=== PATIENT | female | born 1950 | race Hispanic/Latino ===

== ENCOUNTER 2016-12-19 14:23 | Emergency (ER) | payer MEDICARE, OTHER ==
[~2016-12-19] VITALS: Ht 162.6 cm; Wt 84.4 kg
[~2016-12-19 14:23] MED LIST: ACETAZOLAMID250 MG PO; AFEDITAB60 MG OR; ATENOLOL25 MG PO; ATENOLOL50 MG PO; AZITHROMYCIN250 MG PO; BENAZEPRIL5 MG PO; CIPRO XR500 MG PO; COUMADIN2.5 MG PO; COUMADIN3 MG PO; COUMADIN5 MG PO; DIGOXIN0.25 MG PO; ENALAPRIL10 MG PO; ENALAPRIL20 MG OR; LASIX 40 MG TAB40 MG PO; LASIX40 MG OR; LEVOTHYROXIN100 MCG PO; LEVOTHYROXIN25 MCG PO; LOPRESSOR50 M1 PO; LOPRESSOR50 MG PO; MEDDOSEPAK PO; MEDROL4 M1 PO; METFORMIN500 M1 OR; METFORMIN500 MG PO; METOPROL TAR50 MG OR; METOPROL TAR50 MG PO; METOPROLOL50 MG OR; NADOLOL20 MG PO; NIFEDICAL XL60 MG PO; NIFEDIPINE60 MG PO; OMEPRAZOLE20 MG PO; ONDANSETRON4 MG OR; SIMVASTATIN10 MG PO; SPIRONOLACTONE25 MG PO; SYMBICORT1 AE1 IN; ULTRAM50 MG OR; VENTOLIN HFA IN; XARELTO20 MG OR; XARELTO20 MG PO; ZOFRAN4 MG OR
[2016-12-19] MEDS ORDERED: MUPIROCIN2 % EX (15:25)
[2016-12-19] MEDS ORDERED: DOXYCYC MONO100 M1 PO (15:25)
[2016-12-19 15:36] VITALS: BP 123/75
== END 2016-12-19 15:42 | disposition home or self-care (01) ==
LOC: ED 14:23
DX: E11.622 Type 2 diabetes mellitus with other skin ulcer (principal); L97.919 Non-pressure chronic ulcer of unspecified part of right lower leg with unspecified severity; I10 Essential (primary) hypertension; J45.909 Unspecified asthma, uncomplicated; I48.91 Unspecified atrial fibrillation; K72.90 Hepatic failure, unspecified without coma; R18.8 Other ascites; Z86.73 Personal history of transient ischemic attack (TIA), and cerebral infarction without residual deficits

== ENCOUNTER 2016-12-31 10:14 | Emergency (ER) | payer MEDICARE, OTHER ==
[~2016-12-31] VITALS: Ht 165.1 cm; Wt 81.8 kg
[~2016-12-31 10:14] MED LIST changes: +DOXYCYC MONO100 M1 PO; +MUPIROCIN2 % EX
[2016-12-31 11:06] LABS: HEMATOCRIT 31.7 % (37.0-47.0); HEMOGLOBIN 9.8 g/dl (12.0-16.0); IMMATURE GRANULOCYTES 0.7 % (0.0-1.0); MEAN CELL VOLUME 99.7 fL CALC (80.0-100.0); MEAN CORPUSCULAR HGB 30.8 pG CALC (26.0-32.0); MEAN CORPUSCULAR HGB CONC 30.9 g/L CALC (32.0-36.0); NEUT# 1.86 thou/uL (2.00-7.15); RED BLOOD COUNT 3.18 mill/uL (4.20-5.60)
[2016-12-31 11:20] LABS: INTERNATIONAL NORMALIZED RATIO 1.5 RATIO (0.7-1.3); PROTHROMBIN TIME 16.2 SECONDS (9.0-12.5)
[2016-12-31 11:21] LABS: ALBUMIN 3.9 g/dL (3.2-5.0); BILIRUBIN, TOTAL 1.8 mg/dL (0.0-1.4); CALCIUM 10.6 mg/dL (8.4-10.2); CREATININE 1.7 mg/dL (0.5-1.0); TOTAL PROTEIN 8.4 g/dL (6.3-8.2)
[2016-12-31 11:32] LABS: POTASSIUM 5.5 mmol/l (3.5-5.1)
[2016-12-31 14:40] VITALS: BP 103/65
== END 2016-12-31 14:45 | disposition home or self-care (01) ==
LOC: ED 10:14
PROVIDERS: Emergency Medicine
PROC: 0W9G3ZZ Drainage of Peritoneal Cavity, Percutaneous Approach (ICD-10-PCS; principal; 2016-12-31)
DX: R18.8 Other ascites (principal); K72.90 Hepatic failure, unspecified without coma; E11.9 Type 2 diabetes mellitus without complications; I10 Essential (primary) hypertension; J45.909 Unspecified asthma, uncomplicated; I48.91 Unspecified atrial fibrillation; Z86.73 Personal history of transient ischemic attack (TIA), and cerebral infarction without residual deficits

== ENCOUNTER 2017-04-09 11:32 | Inpatient (IN) | payer MEDICARE, OTHER ==
[~2017-04-09] VITALS: Ht 165.1 cm; Wt 85.3 kg
--- NOTE | 2017-04-09 11:41 | NUR ---
PT AMBULATORY TO ROOM 9.
--- NOTE | 2017-04-09 11:46 | NUR ---
PT AMBULATED TO THE BATHROOM WITH A STEADY GAIT TO OBTAIN URINE SAMPLE.
[2017-04-09 12:17] LABS: URINE BILIRUBIN - DIPSTICK NEGATIVE (NEGATIVE); URINE BLOOD DIPSTICK NEGATIVE (NEGATIVE); URINE COLOR YELLOW; URINE GLUCOSE - DIPSTICK NEGATIVE (NEGATIVE); URINE KETONE NEGATIVE (NEGATIVE); URINE LEUK ESTERASE TRACE (NEGATIVE); URINE NITRITE - DIPSTICK NEGATIVE (Negative); URINE PH 5.5 (4.5-8.0); URINE SPECIFIC GRAVITY >=1.030
[2017-04-09 12:20] LABS: HEMATOCRIT 31.3 % (37.0-47.0); HEMOGLOBIN 9.7 g/dl (12.0-16.0); IMMATURE GRANULOCYTES 0.4 % (0.0-1.0); MEAN CELL VOLUME 102.6 fL CALC (80.0-100.0); MEAN CORPUSCULAR HGB 31.8 pG CALC (26.0-32.0); NEUT# 1.49 thou/uL (2.00-7.15); RED BLOOD COUNT 3.05 mill/uL (4.20-5.60); RED CELL DISTRI WIDTH 13.8 % (11.5-15.5)
[2017-04-09 12:21] LABS: URINE CLARITY CLEAR; URINE PROTEIN - DIPSTICK Trace mg/dL (NEG-TRACE)
[2017-04-09 12:30] LABS: INTERNATIONAL NORMALIZED RATIO 1.1 RATIO (0.7-1.3)
[2017-04-09 12:36] LABS: ALBUMIN 3.9 g/dL (3.2-5.0); BILIRUBIN, TOTAL 1.7 mg/dL (0.0-1.4); CALCIUM 10.9 mg/dL (8.4-10.2); CREATININE 1.8 mg/dL (0.5-1.0); POTASSIUM 4.5 mmol/l (3.5-5.1); TOTAL PROTEIN 7.8 g/dL (6.3-8.2)
--- NOTE | 2017-04-09 13:00 | NUR ---
PT RESTING COMFORTBALY IN STRETCHER WITH HOB ELEVATED, SAO2 97% ON 2L NC. PT AWARE OF PENDING PARACENTESIS. CALL RAN MITCHELL.
--- NOTE | 2017-04-09 14:02 | NUR ---
PT RETURNED FROM ULTRASOUND, PT DENIES ANY ABD PAIN AT THIS TIME. ABD SOFT, NON, TENDER UPON PALPATION. INCISION SITE FREE FROM REDNESS OR EDEMA. PT DENIES ANY SOB. SAO2 97% ON 1 L NC. PT AWARE OF PLAN OF CARE AND WAIT TIME. CALL TONG WITHIN REACH, WILL CONTINUE TO MONITOR.
--- NOTE | 2017-04-09 14:30 | NUR ---
PT REPORTS PAIN TO THE RIGHT ABD. RIGHT SIDE ABD NEAR PUNCTURE SITE HAS A LARGE HEMATOMA. MD NOTIFIED AND AT BEDSIDE. PRESSURE DRESSING PLACED AND WILL CONTINUE TO MONITOR.
--- NOTE | 2017-04-09 15:10 | NUR ---
PT HYPOTENSIVE, VERBAL ORDER FROM MD TO GIVE 500 MLS NORMAL SALINE BOLUS.
--- NOTE | 2017-04-09 15:41 | NUR ---
AMELIAAR PRINTED TO THE FLOOR
--- NOTE | 2017-04-09 15:50 | NUR ---
DAUGHTER AT BEDSIDE AND MADE AWARE OF PLAN OF CARE AND PLAN FOR ADMISSION. PT DENIES ANY PAIN OR SOB AT THIS TIME.
--- NOTE | 2017-04-09 16:17 | NUR ---
ALBUMIN INFUSING WITH NO DIFFICULTY THROUGH IV SITE. IV SITE FREE FROM REDNESS/EDEMA. DAUGHTER AND PT AWARE OF PLAN OF CARE AND WAIT TIME. WILL CONTINUE TO MONITOR.
--- NOTE | 2017-04-09 16:25 | NUR ---
MARIO CRUZ WILL CALL BACK FOR REPORT.
--- NOTE | 2017-04-09 16:30 | NUR ---
PT AND FAMILY AWARE OF PLAN FOR ADMISSION TO ICU OVERFLOW PT. PT RESTING COMFORTABLY IN STRECHER, WILL CONTINUE TO MONITOR.
--- NOTE | 2017-04-09 16:55 | NUR ---
REPORT CALLED TO OSCAR BISHOP LPN IN ICU.
[2017-04-09] MEDS ORDERED: PROPRANOLOL120 MG PO (17:00)
--- NOTE | 2017-04-09 17:15 | NUR ---
PT ARRIVED TO THE UNIT VIA STRETCHER, PT MOVED SELF OVER TO BED WITH MINIMAL ASSISTANCE, PT A & O X3, PERRL, AFEBRILE, HR 106, RESP. 20, BP 96/50, O2 96% ON RA, LUNG SOUNDS CLEAR IN ALL CEBALLOS, 20G RAC SALINE LOCKED, NO REDNESS OR DRAINAGE AT SITE, 1+ BILAT ANKLE EDEMA, PT HAS BRONZING TO LE, STRONG RADIAL PULSES, WEAK PEDAL PULSES, CALL TONG AND MONITORING EQUIPMENT EXPLAINED TO THE PT PRIOR TO APPLYING, PT VERBALIZED UNDERSTANDING OF EQUIPMENT, PT HAS VERBALIZED RLQ PAIN, GRAPEFRUIT SIZED HEMATOMA, ABD BINDER APPLIED, ADMISSION ASSESSMENT COMPLETE, SEE INTERVENTIONS, SAFETY MEASURES INTRODUCED, CALL TONG WITHIN REACH
--- NOTE | 2017-04-09 17:15 | NUR ---
Admission Note Report Given to: OSCAR BISHOP LPN Transported by: Wheelchair X Stretcher Transported with: X Nurse Transporter X Patent IV O2 X Senior Hris Analyst PT TO ICU 4 IN STABLE CONDITION.
--- NOTE | 2017-04-09 18:50 | NUR ---
RECEIVED REPORT FROM OSCAR BISHOP, ASSUMED PT CARE. FOUND PT RESTING IN BED, AWAKE WATCHING TV, ALERT AND ORIENTED X3, DENIES N/V, DIZZINESS OR LIGHTHEADEDNESS, RESP ARE EVEN AND UNLABORED ON ROOM AIR, AFIB ON THE MONITOR, HR 100-125 AT THIS TIME, NO DISTRESS NOTED, POST-PARACENTESIS, C/O OF WEAKNESS, DRESSING TO RLQ APPEARS CDI SECURED WITH ABDOMINAL BINDER, HEMATOMA TO RLQ, SIZE OF GRAPEFRUIT, NO REDNESS OR BRUSING NOTED AT SITE, PT STATES "ONLY WHEN I MOVE OR IF I AM LYING ON LEFT SIDE, IT HURTS; OTHERWISE IS ONLY A LITTLE TENDER." ABD IS SOFT, PT APPEARS PALE, SKIN IS WARM AND DRY MUCOUS MEMBRANES, ORAL HYDRATION PROVIDED, LUNGS ARE CLEAR ALLTHROUGHOUT, EXPLAINED SAFETY MEASURES AND PLAN OF CARE PT VOICES UNDERSTADING, THIS MOLDER 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
[2017-04-09 19:15] VITALS: BP 96/50
[2017-04-09 20:00] VITALS: BP 76/76
[2017-04-09 20:15] VITALS: BP 78/45
[2017-04-09 20:30] VITALS: BP 75/34
[2017-04-09 20:35] VITALS: BP 78/50
--- NOTE | 2017-04-09 20:45 | NUR ---
NOTIFIED DR. YU OF PT HYPOTENSION, MONITOR SHOWS 75/34, MANUAL BP 78/50, AFIB ON MONITOR HR 115-145, ORDERS TO ADMINISTER NS 250ML BOLUS IV, THEN NS CONTINUOUS AT 100ML/HR. ORDER FAXED TO PHARMACY. PT ASYMTOMATIC, VOICES NO COMPLAINTS AT THIS TIME, RESP ARE EVEN AND UNLABORED ON ROOM AIR, SKIN APPEARS PALE AND MUCOUS MEMBRANES ARE DRY, PO HYDRATION PROVIDED. WILL CONTINUE TO MONITOR CLOSELY.
--- NOTE | 2017-04-09 22:05 | NUR ---
NOTIFIED DR. YU OF PT BP 77/54 AFTER NS 250ML BOLUS COMPLETED AND AFIB ON MONITOR WITH HR 110-140, ASYMPTOMATIC, SPO2 96% ON ROOM AIR, RESP ARE EVEN AND UNLABORED, ORDERS TO INCREASE NS FROM 100ML/HR TO 150ML/HR CONTINOUOS. WILL CONTINUE TO MONITOR CLOSELY. CALL TONG AT REACH, PT HAS X2 VISITORS AT BEDSIDE.
[2017-04-09 23:50] VITALS: BP 76/40
--- NOTE | 2017-04-09 23:51 | NUR ---
NOTIFIED DR. YU OF PT ASYMPTOMATIC HYPOTENSION BP 76/40, AFIB HR 100-145, TYMPANIC TEMP 100.1; WAITING FOR ORDERS TO BE PROFILE BY PHARMCY.
[2017-04-10] VITALS (33 sets, daily range): BP systolic 67–99; BP diastolic 28–72
--- NOTE | 2017-04-10 02:15 | NUR ---
UPDATED DR. YU OF PT BP 87/45, ASYMPTOMATIC AT THIS TIME, AND OF AFIB WITH HR 110-145, AFTER 1500ML IVF INFUSED SO FAR AND URINE OUPUT 200ML. NO NEW ORDERS RECEIVED AT THIS TIME.
--- NOTE | 2017-04-10 04:02 | NUR ---
NOTIFIED DR. YU OF PT HALLUCINATING AT THIS TIME, STATES "THERE IS A SPIDER AND BIRD HANGING FROM THE CEILING AND ARE GOING TO FALL ON ME." TURNED LIGHTS ON AND REASSURED PT THAT THERE WAS NOT ANYTHING HANGING FROM THE CEILING, PT ALERT AND ORIENTED X4, BUT CONTINUES SAYING THAT THERE IS A BIRD/SPIDER HANGING FROM THE CEILING. FOUND PT WET FROM URINE, PROVIDED CLEAN LINENS AND GOWN, TEMP IS 99.8 AT THIS TIME, MONITOR SHOWS AFIB, HR 110-145, BP 92/44. ABDOMINAL BINDER REMOVED TO REASSESS HEMATOMA TO RLQ, NO CHANGES NOTED FROM BEGINNING OF SHIFT ASSESSMENT NO REDNESS/BRUISING AT SITE, MODERATE RIGIDITY NOTED AT PALPATION, DRESSING TO RLQ APPEARS CDI, PT STATES "IT HURTS WHEN I MOVE OR IF I TRY TO LAY ON THE RIGHT SIDE."
[2017-04-10 04:09] LABS: MEAN CELL VOLUME 103.4 fL CALC (80.0-100.0); MEAN CORPUSCULAR HGB 31.8 pG CALC (26.0-32.0); MEAN CORPUSCULAR HGB CONC 30.8 g/L CALC (32.0-36.0); RED BLOOD COUNT 1.79 mill/uL (4.20-5.60); RED CELL DISTRI WIDTH 14.1 % (11.5-15.5)
[2017-04-10 04:17] LABS: HEMATOCRIT 18.5 % (37.0-47.0); HEMOGLOBIN 5.7 g/dl (12.0-16.0)
--- NOTE | 2017-04-10 04:25 | NUR ---
0419-NOTIFIED DR. YU OF HBG 5.7 AND HCT 18.5, ORDERS TO TYPE AND SCREEN, 2 UNITS OF RBC'S STAT, STOOL OCCULT, CT ABD/PELVIS W/O CONTRAST TO CHECK HEMATOMA. 0425- LAB TECHN IN PT ROOM FOR TYPE & SCREEN AT THIS TIME.
[2017-04-10 04:27] LABS: INTERNATIONAL NORMALIZED RATIO 1.2 RATIO (0.7-1.3)
--- NOTE | 2017-04-10 04:30 | NUR ---
PT IS ALERT AND ORIENTED X4, SIGNED CONSENT FOR ADMINISTRATION OF BLOOD AND BLOOD PRODUCTS, EXPLAINED PROCEDURE, BENEFITS AND RISK, PT VOICES UNDERSTANDING, WILL REINFORCE EDUCATION AT TIME OF INFUSION, WILL CONTINUE TO MONITOR CLOSELY, CALL TONG AT REACH, PT CONTINUES HYPOTENSIVE, DR YU AWARE
[2017-04-10 04:38] LABS: ALBUMIN 2.4 g/dL (3.2-5.0); ALKALINE PHOSPHATASE 80 u/l (38-126); ANION GAP 10 (6-22 (CALC)); BILIRUBIN, TOTAL 1.4 mg/dL (0.0-1.4); BUN 25 mg/dL (8-23); BUN/CREATININE RATIO 15 (12-20 (CALC)); CALCIUM 9.2 mg/dL (8.4-10.2); CARBON DIOXIDE 23 mmol/l (22-30); CHLORIDE 111 mmol/l (95-108); CREATININE 1.6 mg/dL (0.5-1.0); GFR 32 ML/MIN (>=60 (CALC)); GFR FOR AFR.AMER. 39 ML/MIN (>=60 (CALC)); GLUCOSE 120 mg/dL (82-115); POTASSIUM 4.7 mmol/l (3.5-5.1); SGOT/AST 13 u/l (9-36); SGPT/ALT 18 u/l (11-66); SODIUM 140 mmol/l (137-146); TOTAL PROTEIN 5.2 g/dL (6.3-8.2)
--- NOTE | 2017-04-10 06:50 | NUR ---
PT RETURNED FROM CT, PT TX FROM STRETCHER TO BED WITH MAX ASSISTANCE, PT TOLERATED WELL
--- NOTE | 2017-04-10 07:05 | NUR ---
PT LAYING IN BED WITH EYES OPENED, DENIES ANY PAIN AT THIS TIME, A & O X3, PERRL, AFEBRILE TEMP. 97.5, HR 114, RESP. 20, BP 85/53, O2 92% ON RA, LUNG SOUNDS CLEAR IN ALL CEBALLOS, STRONG RADIAL PULSES, WEAK PEDAL PULSES, ABD BINDER REMAINS IN PLACE, 20G RAC IV WITH NS INFUSING AT PRESCRIBED RATE, AM ASSESSMENT COMPLETE, SEE INTERVENTIONS, SAFETY MEASURES REINFORCED, CALL TONG WITHIN REACH
--- NOTE | 2017-04-10 07:10 | NUR ---
DR YU AT BEDSIDE DISCUSSING PLAN OF CARE, NURSE NOA AT BEDSIDE TO INTERPRET FOR
--- NOTE | 2017-04-10 07:35 | NUR ---
SETUP ASSISTANCE PROVIDED WITH ERIC ENRIQUEZ
--- NOTE | 2017-04-10 08:15 | NUR ---
PT LAYING IN BED WATCHING TV, PT DENIES ANY PAIN AT THIS TIME, WILL CONTINUE TO MONITOR, PT REMINDED TO CALL FOR ASSISTANCE, CALL TONG WITHIN REACH
--- NOTE | 2017-04-10 08:19 | NUR ---
Vancomycin consult Age: 66 years Weight: 71.015 kg Height: 165.1 cm Gender: Female SCR: 1.6 mg/dl Dosing weight: 71.015 kg IBW: 57.00 kg CRCL (ml/min): 30.3 George (hr-1): 0.030 Half-life (hrs): 23.10 Vd (liters): 49.71 (factor: 0.7 L/kg) Vancomycin 1000 mg q24 hrs to produce a predicted peak of 38 mcg/ml and a predicted trough of 19 mcg/ml based on (Population-based pharmacokinetic analysis).
--- NOTE | 2017-04-10 09:45 | NUR ---
PT SITTING UP IN BED TALKING ON HER CELL PHONE, CALL RAN WITHIN REACH
--- NOTE | 2017-04-10 10:45 | NUR ---
PT LAYING IN BED WATCHING TV, VERBALIZES NO COMPLAINTS, BLOOD PRODUCTS INFUSING WITHOUT INCIDENT, PT REMINDED TO CALL FOR ASSISTANCE, CALL TONG WITHIN REACH
--- NOTE | 2017-04-10 11:30 | NUR ---
SETUP ASSISTANCE PROVIDED WITH AM MEAL, PT VERBALIZES NO COMPLAINTS, CALL TONG WITHIN REACH
--- NOTE | 2017-04-10 12:10 | NUR ---
PT SITTING UP IN BED WATCHING TV, TOLERATED LUNCH WELL, REMINDED TO CALL FOR ASSISTANCE, CALL TONG WITHIN REACH
--- NOTE | 2017-04-10 13:40 | NUR ---
PT RESTING WITH EYES CLOSED AROUSES EASILY TO VERBAL STIMULI, ABD BINDER REMAINS IN PLACE, PT DENIES PAIN, CALL TONG WITHIN REACH
--- NOTE | 2017-04-10 15:41 | NUR ---
PT ASSISTED WITH REPOSITIONING FOR COMFORT, PT DENIES PAIN, CALL TONG WITHIN REACH
--- NOTE | 2017-04-10 16:27 | NUR ---
PT ASSISTED TO THE BSC AND BACK TO BED, PT AMBULATED WITH A STRONG STEADY GAIT, PT ASSISTED WITH GETTING WASHED UP, TOLERATING WELL, NURSE REMAINED AT PT'S SIDE WHILE SHE IS UP, CALL TONG WITHIN REACH
--- NOTE | 2017-04-10 17:35 | NUR ---
SETUP ASSISTANCE PROVIDED WITH ERIC ENRIQUEZ
[2017-04-10 18:04] LABS: HEMATOCRIT 25.4 % (37.0-47.0); HEMOGLOBIN 8.1 g/dl (12.0-16.0); MEAN CELL VOLUME 97.7 fL CALC (80.0-100.0); MEAN CORPUSCULAR HGB 31.2 pG CALC (26.0-32.0); MEAN CORPUSCULAR HGB CONC 31.9 g/L CALC (32.0-36.0); RED BLOOD COUNT 2.6 mill/uL (4.20-5.60); RED CELL DISTRI WIDTH 16.2 % (11.5-15.5)
--- NOTE | 2017-04-10 19:15 | NUR ---
awake. no acute c/o pain voiced. o2 cont per nc. hospital monitor shows a fib. #20 rac ns infusing @ 150cchr. po fluids taken fair. voids per bsc. firm area rt abd conts. abd binder conts to abd. fall precautions cont.
--- NOTE | 2017-04-10 22:01 | NUR ---
lab here. blood drawn.
[2017-04-10 22:09] LABS: HEMATOCRIT 24.5 % (37.0-47.0); HEMOGLOBIN 7.8 g/dl (12.0-16.0); IMMATURE GRANULOCYTES 0.5 % (0.0-1.0); MEAN CELL VOLUME 96.1 fL CALC (80.0-100.0); MEAN CORPUSCULAR HGB 30.6 pG CALC (26.0-32.0); MEAN CORPUSCULAR HGB CONC 31.8 g/L CALC (32.0-36.0); NEUT# 3.03 thou/uL (2.00-7.15); RED BLOOD COUNT 2.55 mill/uL (4.20-5.60); RED CELL DISTRI WIDTH 16.3 % (11.5-15.5)
--- NOTE | 2017-04-10 22:15 | NUR ---
lab results rec'd. dr doan notified. orders rec'd.
--- NOTE | 2017-04-10 23:30 | NUR ---
up to bsc. c/o pain rt side of abd. pain med offered. pt refused. indicated pain was with movement only.
[2017-04-11] VITALS (9 sets, daily range): BP systolic 9–94; BP diastolic 40–56
--- NOTE | 2017-04-11 04:00 | NUR ---
lab here. blood drawn. surveillance system monitor shows s fib hr 108.
[2017-04-11 04:47] LABS: HEMATOCRIT 23.6 % (37.0-47.0); HEMOGLOBIN 7.3 g/dl (12.0-16.0); MEAN CELL VOLUME 98.7 fL CALC (80.0-100.0); MEAN CORPUSCULAR HGB 30.5 pG CALC (26.0-32.0); MEAN CORPUSCULAR HGB CONC 30.9 g/L CALC (32.0-36.0); RED BLOOD COUNT 2.39 mill/uL (4.20-5.60); RED CELL DISTRI WIDTH 16.2 % (11.5-15.5)
[2017-04-11 05:00] LABS: CALCIUM 9.5 mg/dL (8.4-10.2); CREATININE 1.7 mg/dL (0.5-1.0); POTASSIUM 4.8 mmol/l (3.5-5.1)
--- NOTE | 2017-04-11 05:10 | NUR ---
up to bsc. marychuy well. c/o pain with movement but does not want pain pill.
[2017-04-11 05:23] LABS: INTERNATIONAL NORMALIZED RATIO 1.1 RATIO (0.7-1.3); PROTHROMBIN TIME 12.8 SECONDS (9.0-12.5)
--- NOTE | 2017-04-11 07:15 | NUR ---
PT LAYING BED RESTING WITH EYES CLOSED, AROUSES EASILY TO VERBAL STIMULI, A&O X3, PERRL, AFEBRILE 98.7, HR 104, RESP. 20, BP 80/42, O2 96% ON 2L VIA NC, LUNG SOUNDS CLEAR IN ALL CEBALLOS, 20G RAC IV WITH NS INFUSING AT PRESCRIBED RATE, NO REDNESS OR DRAINAGE AT SITE, ABD BINDER REMAINS IN PLACE, PT VERBALIZES SHE HAS SOME ABD PAIN WHEN MOVING, PAIN MEDICATION OFFERED, PT REFUSED AT THIS TIME, AM ASSESSMENT COMPLETE, SEE INTERVENTIONS, SAFETY MEASURES REINFORCED, CALL TONG WITHIN REACH
--- NOTE | 2017-04-11 07:35 | NUR ---
SETUP ASSISTANCE PROVIDED WITH ERIC ENRIQUEZ
--- NOTE | 2017-04-11 08:15 | NUR ---
PT SITTING UP IN THE BED TALKING ON HER PHONE, NO S/S OF DISTRESS, TOLERATED AM MEAL WELL, CALL TONG WITHIN REACH
--- NOTE | 2017-04-11 08:54 | NUR ---
DR YU AT BEDSIDE DISCUSSING PLAN OF CARE
--- NOTE | 2017-04-11 10:17 | NUR ---
PT RESTING IN BED TALKING ON HER CELL PHONE, DENIES ANY PAIN AT THIS TIME, REMINDED TO CALL FOR ASSISTANCE, CALL TONG WITHIN REACH
[2017-04-11 11:08] LABS: HEMATOCRIT 24.5 % (37.0-47.0); HEMOGLOBIN 7.6 g/dl (12.0-16.0); MEAN CELL VOLUME 100.4 fL CALC (80.0-100.0); MEAN CORPUSCULAR HGB 31.1 pG CALC (26.0-32.0); RED BLOOD COUNT 2.44 mill/uL (4.20-5.60); RED CELL DISTRI WIDTH 16.2 % (11.5-15.5)
--- NOTE | 2017-04-11 11:45 | NUR ---
PT SITTING UP IN THE BED, DENIES ANY PAIN, SETUP ASSISTANCE PROVIDED WITH LUNCH, REMINDED TO CALL FOR ASSISTANCE, CALL TONG WITHIN REACH
--- NOTE | 2017-04-11 13:01 | NUR ---
PT ASSISTED TO THE BSC WITH MINIMAL ASSISTANCE, AMBULATED WITH A SLOW STEADY GAIT, TOLERATED WELL, CALL TONG WITHIN REACH
--- NOTE | 2017-04-11 14:05 | NUR ---
PT SITTING UP IN CHAIR, TOLERATING WELL, VERBALIZES NO COMPLAINTS, CALL TONG WITHIN REACH
--- NOTE | 2017-04-11 15:47 | NUR ---
PT SITTING IN CHAIR, NO S/S OF DISTRESS, DENIES PAIN, REMINDED TO CALL FOR ASSISTANCE, CALL TONG WITHIN REACH
--- NOTE | 2017-04-11 16:30 | NUR ---
PT ASSISTED BACK TO BED WITH MINIMAL ASSISTANCE, PT TOLERATED WELL, PT VERBALIZED SHE WAS HAVING RLQ PAIN, MEDICATED PRESCRIBED, PT REMINDED TO CALL FOR ASSISTANCE, CALL TONG WITHIN REACH
--- NOTE | 2017-04-11 17:25 | NUR ---
DAUGHTER AT BEDSIDE
--- NOTE | 2017-04-11 19:10 | NUR ---
awake. denies acute abd pain. binder conts. o2 cont per nc. cardiac monitor technician shows a fib. #20 rac ns infusing @ 20cchr. po fluids taken well. voids per bsc. fall precautions cont.
--- NOTE | 2017-04-11 21:00 | NUR ---
awake. watching tv. no c/o voiced. radiation monitor shows a fib.
[2017-04-12] VITALS (22 sets, daily range): BP systolic 71–152; BP diastolic 37–80
--- NOTE | 2017-04-12 00:01 | NUR ---
eyes closed. no distress. fast food fry cook shows a fib.
--- NOTE | 2017-04-12 02:00 | NUR ---
resting quietly. resps even & unlabored. o2 conts.
--- NOTE | 2017-04-12 03:00 | NUR ---
assisted to bsc. c/o pain with movement but does not want pain med.
--- NOTE | 2017-04-12 04:00 | NUR ---
lab here. blood drawn.
[2017-04-12 04:28] LABS: HEMATOCRIT 23.3 % (37.0-47.0); HEMOGLOBIN 7.1 g/dl (12.0-16.0); IMMATURE GRANULOCYTES 0.3 % (0.0-1.0); MEAN CELL VOLUME 101.3 fL CALC (80.0-100.0); MEAN CORPUSCULAR HGB 30.9 pG CALC (26.0-32.0); MEAN CORPUSCULAR HGB CONC 30.5 g/L CALC (32.0-36.0); NEUT# 2.47 thou/uL (2.00-7.15); RED BLOOD COUNT 2.3 mill/uL (4.20-5.60); RED CELL DISTRI WIDTH 15.7 % (11.5-15.5)
[2017-04-12 04:40] LABS: INTERNATIONAL NORMALIZED RATIO 1.1 RATIO (0.7-1.3)
[2017-04-12 05:04] LABS: CALCIUM 9.6 mg/dL (8.4-10.2); CREATININE 1.9 mg/dL (0.5-1.0); POTASSIUM 4.9 mmol/l (3.5-5.1)
--- NOTE | 2017-04-12 06:00 | NUR ---
no acute change in condition this shift. no distress. satellite project site monitor shows a fib.
--- NOTE | 2017-04-12 07:07 | NUR ---
pt noted resting with eyes closed; easily aroused; offers no complaints; assessment completed at this time; pt mainly amharic speaking but able to understand some botswanan; alert and oriented; denies pain; no n/v noted; resp even and unlabored; lungs clear; skin color wnl; o2 per nc at 2L; hr irreg; afib on monitor; strong pulses; trace edema noted to ble; abd soft/distended with bs hyperactive; no bm noted per fiction and nonfiction prose writer; dressing cdi to right abd wall; no drainage noted; abd binder intact; no urine to inspect at this time; bsc; #20 in rac patent with ivf infusing without complication; iv flushed and patent; brisk blood return noted; edema noted to rue distal to iv site; discoloration/bronzing noted to ble; dressing cdi to right inner ankle; plan of care/am meds explained; call light within reach; will continue to monitor
--- NOTE | 2017-04-12 08:08 | NUR ---
awake; eating breakfast; no distress noted; pt offers no complaints; afib on monitor; iv patent; o2 per nc; call light within reach; will continue to monitor
--- NOTE | 2017-04-12 09:02 | NUR ---
bp reviewed with Dr Radha MYERS informed SBP 90s; orders received to administer Inderal
--- NOTE | 2017-04-12 09:05 | NUR ---
Dr Shaikh at bedside to discuss plan of care; Sary RN (OB) at bedside to interpret; informed of o2 sat 88% on RA; will continue to monitor
--- NOTE | 2017-04-12 09:25 | NUR ---
0925- pt transferred to CT Scan via wc with portable o2 accompanied by this credit underwriter and student nurse; pt denies dizziness while standing; admits to abd with movement; 0935- pt returned to unit in stable condition accompanied by this credit underwriter; will continue to monitor
--- NOTE | 2017-04-12 09:40 | NUR ---
law writer asssit with bath while pt up to chair; complete linen change; weight obtained via standing scale at 181.5; oral care per pt; iv infusing without complication; call light within reach; will continue to monitor
--- NOTE | 2017-04-12 10:02 | NUR ---
awake in bed; offers no complaints; iv patent; o2 per nc; afib on monitor; Dr Shaikh informed this radio news writer he will notify Dr Neri on consultation; will continue to monitor
--- NOTE | 2017-04-12 12:02 | NUR ---
awake in recliner; tolerated lunch well; offers no complaints; denies pain; iv patent; no redness or edema noted at site; o2 per nc; afib on monitor; call light within reach; will continue to monitor
--- NOTE | 2017-04-12 12:40 | NUR ---
Dr Neri at bedside
--- NOTE | 2017-04-12 14:09 | NUR ---
pt awake in chair; no distress noted; offers no complaints; iv patent; no redness or edema noted at site; afib on monitor; o2 per nc; call light within reach; will continue to monitor
--- NOTE | 2017-04-12 16:05 | NUR ---
resting with eyes closed; easily aroused; offers no complaints; bp 71/37; manual bp obtained at 80/42, afib 79 on monitor; Dr Shaikh notified of BP; iv patent; no redness or edema noted at site; o2 per nc; afib on monitor; call light within reach; will continue to monitor
--- NOTE | 2017-04-12 18:18 | NUR ---
awake in bed; offers no complaints; no distress noted; iv patent; no redness or edema noted at site; afib on monitor; o2 per nc; bed in lowest position; call light within reach
--- NOTE | 2017-04-12 19:00 | NUR ---
REPORT FROM Lavelle MATTHEWS RN. ASSUMED PT. CARE.
--- NOTE | 2017-04-12 20:00 | NUR ---
IV ANTIBIOTICS INFUSED. IV FLUIDS INFUSING AT THIS TIME. OCCASIONAL DOWNSTREAM OCCLUSION NOTED. PT. REPOSITIONED. PT. C/O MILD RT. ABD/FLANK PAIN AT SITE OF PREVIOUS PARACENTESIS. RESPS EVEN AND UNLABORED. SKIN IS WARM AND DRY. RUTH. 2+ LOWER EXT EDEMA. BRONZING NOTED TO LOWER EXT BILATERALLY TO MID DON. PT. IN AFIB, RATE BETWEE 70-105. BP HYPOTENSIVE AT THIS TIME. WILL CONTINUE TO MONITOR. CALL LIGHT REMAINS WITHIN REACH.
--- NOTE | 2017-04-12 21:15 | NUR ---
PT. REMAINS HYPOTENSIVE AT THIS TIME. HR REMAINS A-FIB WITH RATE IN THE 70-100 RANGE. BP LOW AT 77 SYSTOLIC. IV FLUIDS CONTINUE TO INFUSE WITHOUT SX OF INFILTRATION. INDERALL HELD AT THIS TIME. WILL CONTINUE TO ASSESS.
--- NOTE | 2017-04-12 22:39 | NUR ---
PT. CONTINUES TO REST WITH EYES CLOSED. DENIES COMPLAINTS OF PAIN OR NEED. RESPS REMAIN EVEN AND UNLABORED. BP. REMAINS ON THE LOW SIDE. HR REMSIN STABLE BETWEEN 70-107. DENIES COMPLAINTS OR NEED. CALL LIGHT REMIANS WITHIN REACH.
[2017-04-13] VITALS (22 sets, daily range): BP systolic 79–103; BP diastolic 38–68
--- NOTE | 2017-04-13 00:30 | NUR ---
PT. ABDOMINAL BINDER REPOSITIONED FOR COMFORT. IV ABX INFUSING WITHOUT SX OF INFILTRATION OR EXTRAVASATION. CALL LIGHT REMAINS WITHIN REACH. PT. REMAINS HYPOTENSIVE WITH RATE CONTROLLED A-FIB AT 92. DENIES OTHER COMPLAINTS OR NEEDS. WILL CONTINUE TO MONITOR.
--- NOTE | 2017-04-13 02:15 | NUR ---
PT. RESTING IN BED WITH EYES CLOSED. IV FLUIDS CONTINUE TO INFUSE WITHOUT SX OF INFILTRATION OR EXTRAVASATION. RESPS REMAIN EVEN AND UNLABORED. SKIN REMAINS WARM AND DRY. AROUSABLE TO LIGHT VERBAL STIMULI.
--- NOTE | 2017-04-13 04:10 | NUR ---
PT. ASSISTED TO BEDSIDE COMMODE. APPROX 800 CC URINE OUT AT THIS TIME. TOLERATED WELL. REMAINS A-FIB WITH RATE OF 70-105. VSS. CALL LIGHT REMAINS WITHIN REACH. WILL CONTINUE TO MONITOR.
--- NOTE | 2017-04-13 05:00 | NUR ---
IV SITE CHANGED TO LT. WRIST #22. RT. AC IV DISCONTINUED AT THIS TIME. BANDAGE APPLIED, BLEEDING CONTROLLED. IV FLUIDS RESTARTED AT THIS TIME. WILL CONTINUE TO MONITOR.
[2017-04-13 05:01] LABS: HEMATOCRIT 23.4 % (37.0-47.0); HEMOGLOBIN 7.2 g/dl (12.0-16.0); MEAN CORPUSCULAR HGB 30.8 pG CALC (26.0-32.0); MEAN CORPUSCULAR HGB CONC 30.8 g/L CALC (32.0-36.0); RED BLOOD COUNT 2.34 mill/uL (4.20-5.60)
[2017-04-13 05:08] LABS: ALBUMIN 2.7 g/dL (3.2-5.0); POTASSIUM 4.9 mmol/l (3.5-5.1)
--- NOTE | 2017-04-13 07:30 | NUR ---
awake in bed; no distress noted; assessment completed at this time; pt alert; denies pain; no n/v noted; resp even and unlabored; lungs clear; skin color wnl; o2 per nc; no cough noted; hr irreg; strong pulses; 1+ edema noted to ble; afib on monitor; abd soft/ distended with bs present; no bm noted per check writer salesperson; no urine to inspect at this time; bsc; #22 in lw patent with ivf infusing without complication; no redness or edema noted at site; bruising noted to right abd; rigid area noted around paracentesis site; abd binder intact; plan of care/ am meds explained; pt encouraged to use call light; will continue to monitor
--- NOTE | 2017-04-13 08:21 | NUR ---
awake eating breakfast; no distress noted; pt offers no complaints; iv patent; no redness or edema noted at site; afib on monitor; call light within reach; will continue to monitor
--- NOTE | 2017-04-13 09:30 | NUR ---
Dr Shaikh on unit; spoke with MD in regards to Inderal and hypotension; orders received to hold dose
--- NOTE | 2017-04-13 09:45 | NUR ---
Dr Shaikh at bedside to discuss plan of care; Nicole, OB UC at bedside to interpret
--- NOTE | 2017-04-13 10:08 | NUR ---
awake in bed; no distress noted; pt offers no complaints; afib on monitor; iv patent; no redness or edema noted at site; call light within reach; will continue to monitor
--- NOTE | 2017-04-13 11:48 | NUR ---
awake; offers no complaints; lunch set up; iv patent; no redness or edema noted at site; afib on monitor; o2 per nc; lungs clear; call light within reach; will continue to monitor
--- NOTE | 2017-04-13 14:10 | NUR ---
awake in bed; offers no complaints; no distress noted; resp even and unlabored; iv patent; no redness or edema noted at site; afib on monitor; o2 per nc; pt refusing bath at this time; call light within reach; will continue to monitor
--- NOTE | 2017-04-13 16:15 | NUR ---
pt awake in bed; offers no complaints; no distress noted; iv patent; no redness or edema noted at site; afib on monitor; denies needs; call light within reach; will continue to monitor
--- NOTE | 2017-04-13 16:54 | NUR ---
assist with bath; complete linen change; oral care per self; abd binder removed; abd noted more distended; lg bruise noted to right lat torso; up to recliner for dinner; will continue to monitor
--- NOTE | 2017-04-13 18:00 | NUR ---
awake in recliner eating dinner; admits to pain; refusing pain meds offered; o2 per nnc; afib on monitor; iv patent; call light within reach
--- NOTE | 2017-04-13 18:55 | NUR ---
REPORT FROM Lavelle MATTHEWS RN. ASSUMED PT. CARE.
--- NOTE | 2017-04-13 19:45 | NUR ---
PT. FOUND SITTING UP IN BED SPEAKING TO FAMILY. BM NOTED AT THIS TIME AND SMALL AMOUT OF URINE. PT. AWAKE, ALERT, ORIENTED X 3. RESPS ARE EVEN AND UNLABORED. SKIN WARM AND DRY. ABDOMINAL DISTENTION NOTED. 1-2+ LOWER EXT EDEMA AND BRONZING NOTED. PULSES INTACT THROUGHOUT. BP/HR STABLE AT THIS TIME. REMAINS A-FIB RATE CONTROLLED. IV FLUIDS CONTINUE KVO PER PHYSICIAN ORDERS. WILL CONTINUE TO ASSESS.
--- NOTE | 2017-04-13 20:20 | NUR ---
DAUGHTERS QUESTIONS ANSWERED AT THIS TIME. UPDATED ON PLAN OF CARE. PT. CONTINUE TO REST IN BED IN NO DISTRESS.
--- NOTE | 2017-04-13 22:15 | NUR ---
PT. RESTING IN BED WITH EYES CLOSED. EASILY AROUSABLE TO LIGHT VERBAL STIMULI. MEDICATED PER PHYSICAN ORDERS. PT. DENIES PAIN AT THIS TIME. ONLY COMPLAINT IS SHE IS COLD. WARM BLANKET PROVIDED AT THIS TIME. BP STABLE. IV FLUIDS CONTINUE AT KVO. CALL LIGHT REMAINS WITHIN REACH.
--- NOTE | 2017-04-13 23:36 | NUR ---
PT. CONTINUES TO REST WITH EYES CLOSED IN NO DISTRESS. CALL LIGHT REMAINS WITHIN REACH. RESPS REMAIN EVEN AND UNLABORED. SKIN WARM AND DRY. VSS. PT. REMAINS A-FIB, RATE CONTROLLED.
[2017-04-14] VITALS (16 sets, daily range): BP systolic 87–111; BP diastolic 49–72
--- NOTE | 2017-04-14 00:18 | NUR ---
IV ANTIBIOTICS INFUSING WITHOUT SX OF INFILTRATION OR EXTRAVASATION. CALL LIGHT REMAINS WITHIN REACH. HR AND BP STABLE.
--- NOTE | 2017-04-14 02:15 | NUR ---
ALBUMIN INFUSING AT THIS TIME WITHOUT REACTION NOTED. RESTING WITH EYES CLOSED. DENIES COMPLAINTS OF PAIN OR NEED AT THIS TIME. IV FLUIDS CONTINUE TO INFUSE WITHOUT SX OF INFILTRATION OR EXTRAVASATION. CALL LIGHT REMAINS WITHIN REACH. NO DISTRESS NOTED.
--- NOTE | 2017-04-14 04:05 | NUR ---
LAB AT BEDSIDE AT THIS TIME. PT. AROUSABLE TO LIGHT VERBAL STIMULI. REMAINS ORIENTED X 3. SKIN WARM AND DRY. RUTH. TEMP NOW 99.3. VSS.
--- NOTE | 2017-04-14 05:24 | NUR ---
PT. ASSISTED TO BEDSIDE COMMODE. REMAINS A-FIB RATE CONTROLLED. HR DOES ELEVATE WITH EXERTION. DENIES COMPLAINTS OF PAIN OR NEED. CALL LIGHT REMAINS WITHIN REACH.
[2017-04-14 05:52] LABS: HEMATOCRIT 21.7 % (37.0-47.0); MEAN CELL VOLUME 100.9 fL CALC (80.0-100.0); MEAN CORPUSCULAR HGB 31.2 pG CALC (26.0-32.0); MEAN CORPUSCULAR HGB CONC 30.9 g/L CALC (32.0-36.0); RED BLOOD COUNT 2.15 mill/uL (4.20-5.60); RED CELL DISTRI WIDTH 14.9 % (11.5-15.5)
[2017-04-14 06:02] LABS: HEMOGLOBIN 6.7 g/dl (12.0-16.0)
[2017-04-14 06:05] LABS: ALBUMIN 2.7 g/dL (3.2-5.0); CREATININE 2.3 mg/dL (0.5-1.0); POTASSIUM 4.7 mmol/l (3.5-5.1)
--- NOTE | 2017-04-14 06:14 | NUR ---
MD MADE AWARE OF CRITICAL LAB VALUES. IV ANTIBIOTICS INFUSING WITHOUT SX OF INFILTRATION OR EXTRAVASATION. MEDICATED PER PHYSICIAN ORDERS. WILL CONTINUE TO ASSESS. PT. REMAINS IN NO DISTRESS.
--- NOTE | 2017-04-14 06:54 | NUR ---
LAB AT BEDSIDE AT THIS TIME TO REDRAW FOR TYPE AND SCREEN.
--- NOTE | 2017-04-14 07:25 | NUR ---
PT RESTING IN BED, ALERT AND ORIENTED, SPEAKS ARMENIAN, ALSO SPEAKS MINIMAL UKRAINIAN, ABLE TO MAKE BASIC NEEDS KNOWN, AM ASSESSMENT COMPLETED, ABD LARGE AND SOFT LARGE HEMATOMA NOTED TO R LATERAL TORSO, LUNGS CLEAR WITH NO SHORTNESS OF BREATH NOTED, BILATERAL LE WITH DISCOLORATION, PT STATES NOT NEW, PPPB, SKIN WARM DRY AND INTACT, IV ACCESS IN LEFT WRIST WITH IVF INFUSING AT PRESCRIBED RATE, AM ASSESSMENT COMPLETED SEE INTERVENTIONS, SAFETY MEASURES REINFORCED, EDUCATED REGARDING PLAN OF CARE INCLUDING BLOOD TRANSFUSION, CALL TONG WITHIN REACH.
--- NOTE | 2017-04-14 07:50 | NUR ---
SET UP ASSIST PROVIDED FOR AM MEAL, CALL TONG WITHIN REACH
--- NOTE | 2017-04-14 08:25 | NUR ---
UP TO BSC, CONTINENT OF SMALL AMOUNT CLEAR JACKELYN URINE, AND VERY SMALL FORMED BM, PROVIDES OWN DAVIS CARE, CALL TONG WITHIN REACH.
--- NOTE | 2017-04-14 09:00 | NUR ---
DR. YU AND INTO SEE PATIENT, PLAN OF CARE DISCUSSED INCLUDING POSSIBLE TRANSFER TO [facility], BLOOD TRANSFUSION STARTED AT 0849 PT TOLERATING W/O INCIDENT, PT AGREEABLE TO TRANSFER, CALL TONG WITHIN REACH.
--- NOTE | 2017-04-14 10:05 | NUR ---
pt oob to bsc, independently, tolerates activity well.
--- NOTE | 2017-04-14 10:29 | NUR ---
DAUGHTER AT BEDSIDE AWARE OF POTENTIAL PLANNED TRANSFER TO [facility] TODAY.
--- NOTE | 2017-04-14 11:08 | NUR ---
TRANSFUSION COMPLETE, PT TOLERATED WELL, WILL ADMINISTER LASIX ORDERED, DAUGHTER REMAINS AT BEDSIDE, PT TALKING ON PHONE AT TIMES, EDUCATED ABOUT LASIX EARLIER THIS AM WITH INVENTORY CONTROL SPECIALIST AND AGAIN NOW VIA DAUGTER, PT VERBALZIES UNDERSTANDING.
--- NOTE | 2017-04-14 11:45 | NUR ---
OOB TO BSC WITH STAND BY ASSIST, TOLERATED ACTIVITY WELL.
--- NOTE | 2017-04-14 12:15 | NUR ---
SET UP ASSIST PROVIDED FOR AFTERNOON MEAL, CALL TONG WITHIN REACH, FAMILY AT BEDSIDE.
--- NOTE | 2017-04-14 13:20 | NUR ---
CALL INTO KATRIN AT [facility], INFOR PROVIDED, FACE SHEET FAXED, PER DR.RAJIHA DR.GULE CROUCH ACCEPTING. AWAITING CALL BACK FROM [facility].
--- NOTE | 2017-04-14 13:38 | NUR ---
PT OOB TO BSC, CONTINENT OF CLER YELLOW URINE, PROVIDES OWN DAVIS CARE, BACK TO BED, PT TRASNFERS WITH STRONG STEADY GAIT, CALL TONG WITHIN REACH.
--- NOTE | 2017-04-14 13:56 | NUR ---
KATRIN FROM [facility] CALLED, PT ACCEPTED, AWIATING BED ASSIGNMENT, WILL CALL WHEN BED AVAILABLE.
--- NOTE | 2017-04-14 14:39 | NUR ---
BED ASSIGNMENT REC'D FROM KATRIN, BED 5C 2A ASSIGNED, NUMBER FOR REPORT IS [phone], PT DAUGHTER FRANCESCA NOTIFIED.
--- NOTE | 2017-04-14 15:04 | NUR ---
[facility]
--- NOTE | 2017-04-14 15:12 | NUR ---
DAUGHTER AND SON AT BEDSIDE, AWARE OF TRANSFER AND DAUGHTER PROVIDED WITH ROOM NUMBER AND PHONE NUMBER OF ACCEPTING FACILITY
--- NOTE | 2017-04-14 15:16 | NUR ---
PT AMBULATED TO STRETCHER, TO [facility] VIA STRETCHER WITH [facility], PT HOME MED AND ALL BELONGINGS SENT WITH PATIENT.
--- NOTE | 2017-04-14 15:34 | NUR ---
REPORT CALLED TO SOL AT [phone]
== END 2017-04-14 15:16 | disposition short-term general hospital (02) | DRG 919 ==
LOC: ED 11:32 → ED-I 15:23 → ICU 15:37 → ED 15:37 → MS2 15:37 → ICU 04-10 06:10
PROVIDERS: Family Medicine; Internal Medicine Nephrology; ADMIT Internal Medicine; ATTEND Internal Medicine
PROC: 0W9G3ZZ Drainage of Peritoneal Cavity, Percutaneous Approach (ICD-10-PCS; principal; 2017-04-09)
PROC: 30233R1 Transfusion of Nonautologous Platelets into Peripheral Vein, Percutaneous Approach (ICD-10-PCS; 2017-04-10)
PROC: 30233N1 Transfusion of Nonautologous Red Blood Cells into Peripheral Vein, Percutaneous Approach (ICD-10-PCS; 2017-04-10)
PROC: 30233N1 Transfusion of Nonautologous Red Blood Cells into Peripheral Vein, Percutaneous Approach (ICD-10-PCS; 2017-04-10)
PROC: 30233N1 Transfusion of Nonautologous Red Blood Cells into Peripheral Vein, Percutaneous Approach (ICD-10-PCS; 2017-04-10)
PROC: 30233N1 Transfusion of Nonautologous Red Blood Cells into Peripheral Vein, Percutaneous Approach (ICD-10-PCS; 2017-04-14)
DX: M96.841 Postprocedural hematoma of a musculoskeletal structure following other procedure (principal); K76.7 Hepatorenal syndrome; N17.9 Acute kidney failure, unspecified; D61.818 Other pancytopenia; E11.22 Type 2 diabetes mellitus with diabetic chronic kidney disease; N18.3 Chronic kidney disease, stage 3 (moderate); E87.2 Acidosis; I50.9 Heart failure, unspecified; I85.10 Secondary esophageal varices without bleeding; I13.0 Hypertensive heart and chronic kidney disease with heart failure and stage 1 through stage 4 chronic kidney disease, or unspecified chronic kidney disease; D62 Acute posthemorrhagic anemia; R18.8 Other ascites; K74.60 Unspecified cirrhosis of liver; I48.91 Unspecified atrial fibrillation; I95.81 Postprocedural hypotension; K59.00 Constipation, unspecified; E03.9 Hypothyroidism, unspecified; Y84.4 Aspiration of fluid as the cause of abnormal reaction of the patient, or of later complication, without mention of misadventure at the time of the procedure; Y92.238 Other place in hospital as the place of occurrence of the external cause; D63.1 Anemia in chronic kidney disease; Z79.01 Long term (current) use of anticoagulants; Z86.73 Personal history of transient ischemic attack (TIA), and cerebral infarction without residual deficits
CPT/HCPCS: P9016; P9035; P9047

== ENCOUNTER 2018-01-11 04:52 | Emergency (ER) | payer MEDICARE, OTHER ==
[~2018-01-11] VITALS: Ht 165.1 cm; Wt 81.8 kg
[~2018-01-11 04:52] MED LIST changes: +PROPRANOLOL120 MG PO
[2018-01-11] MEDS ORDERED: INDERAL10 M1 PO (05:09)
[2018-01-11] MEDS ORDERED: PEPCID20 MG PO (05:10)
[2018-01-11] MEDS ORDERED: MIDODRINE5 MG PO (05:11)
[2018-01-11 05:30] LABS: HEMATOCRIT 27.6 % (37.0-47.0); HEMOGLOBIN 8.4 g/dl (12.0-16.0); MEAN CELL VOLUME 104.2 fL CALC (80.0-100.0); MEAN CORPUSCULAR HGB 31.7 pG CALC (26.0-32.0); MEAN CORPUSCULAR HGB CONC 30.4 g/L CALC (32.0-36.0); NEUT# 2.09 thou/uL (2.00-7.15); RED BLOOD COUNT 2.65 mill/uL (4.20-5.60); RED CELL DISTRI WIDTH 15.6 % (11.5-15.5)
[2018-01-11 05:44] LABS: ALBUMIN 3.2 g/dL (3.2-5.0); BILIRUBIN, TOTAL 0.7 mg/dL (0.0-1.4); CREATININE 1.8 mg/dL (0.5-1.0)
[2018-01-11 06:17] LABS: MYOGLOBIN 34 ng/mL (0 - 62)
[2018-01-11 07:15] LABS: ACT PARTIAL THROMBO TIME 28.5 SECONDS (20.0-32.5); PROTHROMBIN TIME 10.7 SECONDS (9.0-12.5)
[2018-01-11 07:25] VITALS: BP 114/75
== END 2018-01-11 07:25 | disposition short-term general hospital (02) ==
LOC: ED 04:52
PROVIDERS: Emergency Medicine
DX: R18.8 Other ascites (principal); K74.60 Unspecified cirrhosis of liver; D61.818 Other pancytopenia; E03.9 Hypothyroidism, unspecified; I10 Essential (primary) hypertension; R06.02 Shortness of breath

== ENCOUNTER 2018-05-12 09:33 | Outpatient (REF) | payer MEDICARE ==
[~2018-05-12] VITALS: Ht 162.6 cm; Wt 72.6 kg
[~2018-05-12 09:33] MED LIST changes: +INDERAL10 M1 PO; +MIDODRINE5 MG PO; +PEPCID20 MG PO
[2018-05-12 10:30] LABS: PROTHROMBIN TIME 10.8 SECONDS (9.0-12.5)
[2018-05-12 13:15] VITALS: BP 103/61
[2018-05-12] MEDS ORDERED: LASIX 20 MG TAB20 MG PO (13:21)
[2018-05-12] MEDS ORDERED: DIGOXIN0.125 MG PO (13:22)
== END 2018-05-12 15:06 | disposition home or self-care (01) ==
LOC: INF 09:33 → ULTRASND 09:33 → INF 15:06
PROVIDERS: ATTEND Internal Medicine Nephrology
PROC: 0W9G3ZZ Drainage of Peritoneal Cavity, Percutaneous Approach (ICD-10-PCS; principal; 2018-05-12)
DX: K74.60 Unspecified cirrhosis of liver (principal); R18.8 Other ascites
CPT/HCPCS: P9047

== ENCOUNTER → 2018-05-24 | Outpatient (REF) | payer MEDICARE ==
[~2018-05-24] MED LIST changes: +DIGOXIN0.125 MG PO; +LASIX 20 MG TAB20 MG PO
== END | disposition home or self-care (01) ==
LOC: ULTRASND 09:16
PROVIDERS: ATTEND Internal Medicine Nephrology
PROC: 0W9G3ZZ Drainage of Peritoneal Cavity, Percutaneous Approach (ICD-10-PCS; principal; 2018-05-24)
DX: R18.8 Other ascites (principal)

== ENCOUNTER 2018-06-07 10:35 | Outpatient (REF) | payer MEDICARE ==
[2018-06-07 11:21] LABS: PROTHROMBIN TIME 10.4 SECONDS (9.0-12.5)
[2018-06-07 14:22] VITALS: BP 100/60
== END 2018-06-07 14:25 | disposition home or self-care (01) ==
LOC: INF 10:35 → ULTRASND 10:35 → INF 14:25
PROVIDERS: ATTEND Internal Medicine Nephrology
PROC: 0W9G3ZZ Drainage of Peritoneal Cavity, Percutaneous Approach (ICD-10-PCS; principal; 2018-06-07)
PROC: BW111ZZ Fluoroscopy of Abdomen and Pelvis using Low Osmolar Contrast (ICD-10-PCS; 2018-06-07)
DX: R18.8 Other ascites (principal); K74.60 Unspecified cirrhosis of liver
CPT/HCPCS: P9047

== ENCOUNTER 2018-08-26 15:52 | Emergency (ER) | payer MEDICARE, OTHER ==
[~2018-08-26] VITALS: Ht 162.6 cm; Wt 85.0 kg
[2018-08-26] MEDS ORDERED: CONZIP100 MG PO (16:15)
[2018-08-26] MEDS ORDERED: DOXYCYC MONO100 M2 PO (16:15)
[2018-08-26 16:30] VITALS: BP 115/56
== END 2018-08-26 16:40 | disposition home or self-care (01) ==
LOC: ED 15:52
DX: L03.115 Cellulitis of right lower limb (principal); E11.622 Type 2 diabetes mellitus with other skin ulcer; L97.319 Non-pressure chronic ulcer of right ankle with unspecified severity; I10 Essential (primary) hypertension; E03.9 Hypothyroidism, unspecified

== ENCOUNTER 2019-01-10 20:07 | Emergency (ER) | payer MEDICARE, OTHER ==
[~2019-01-10] VITALS: Ht 162.6 cm; Wt 70.0 kg
[~2019-01-10 20:07] MED LIST changes: +CONZIP100 MG PO; +DOXYCYC MONO100 M2 PO
[2019-01-10 22:06] LABS: HEMATOCRIT 28.6 % (37.0-47.0); HEMOGLOBIN 8.6 g/dl (12.0-16.0); IMMATURE GRANULOCYTES 0.3 % (0.0-5.0); MEAN CORPUSCULAR HGB 31.3 pG CALC (26.0-32.0); MEAN CORPUSCULAR HGB CONC 30.1 g/L CALC (32.0-36.0); NEUT# 2.29 thou/uL (2.00-7.15); RED BLOOD COUNT 2.75 mill/uL (4.20-5.60); RED CELL DISTRI WIDTH 14.6 % (11.5-15.5)
[2019-01-10 22:09] LABS: URINE BILIRUBIN - DIPSTICK NEGATIVE (NEGATIVE); URINE BLOOD DIPSTICK LARGE (NEGATIVE); URINE COLOR YELLOW; URINE GLUCOSE - DIPSTICK NEGATIVE (NEGATIVE); URINE KETONE NEGATIVE (NEGATIVE); URINE LEUK ESTERASE NEGATIVE (NEGATIVE); URINE NITRITE - DIPSTICK NEGATIVE (Negative); URINE PH 6.5 (4.5-8.0); URINE PROTEIN - DIPSTICK TRACE mg/dL (NEG-TRACE); URINE SPECIFIC GRAVITY 1.025; URINE UROBILINOGEN - DIPSTICK 0.2 E.U./dL (0.2)
[2019-01-10 22:22] LABS: URINE RBC >100 RBC/hpf (0-5); URINE SQUAMOUS EPITHELIAL CELL FEW EPI/hpf (0-FEW)
[2019-01-10 22:29] LABS: ALBUMIN 3.4 g/dL (3.2-5.0); BILIRUBIN, TOTAL 0.8 mg/dL (0.0-1.4); CREATININE 1.8 mg/dL (0.5-1.0); POTASSIUM 4.7 mmol/l (3.5-5.1); TOTAL PROTEIN 7.4 g/dL (6.3-8.2)
[2019-01-10 22:30] LABS: ACT PARTIAL THROMBO TIME 26.7 SECONDS (20.0-32.5); PROTHROMBIN TIME 10.6 SECONDS (9.0-12.5)
[2019-01-10] MEDS ORDERED: ANUCORT-HC25 MG RE (23:34)
[2019-01-10] MEDS ORDERED: KEFLEX500 MG PO (23:34)
[2019-01-10 23:45] VITALS: BP 101/59
== END 2019-01-11 00:15 | disposition home or self-care (01) ==
LOC: ED 20:07
DX: K64.8 Other hemorrhoids (principal); R31.29 Other microscopic hematuria; D64.9 Anemia, unspecified; K74.60 Unspecified cirrhosis of liver; E11.9 Type 2 diabetes mellitus without complications; E03.9 Hypothyroidism, unspecified; I10 Essential (primary) hypertension

== ENCOUNTER 2019-03-13 | Inpatient (IN) | payer MEDICARE, OTHER ==
--- NOTE | 2019-03-11 19:04 | NUR ---
Pt to room # 6 for bedside triage
--- NOTE | 2019-03-11 19:10 | NUR ---
PT'S 02 SAT 79-80 DR MOISE INFORMED 02 @2L VIA NC APPLIED. WILL DO ABG ON OXYGEN.
[2019-03-11 20:05] LABS: HEMATOCRIT 31.3 % (37.0-47.0); HEMOGLOBIN 9.4 g/dl (12.0-16.0); IMMATURE GRANULOCYTES 0.5 % (0.0-5.0); MEAN CORPUSCULAR HGB 31.5 pG CALC (26.0-32.0); NEUT# 3.37 thou/uL (2.00-7.15); RED BLOOD COUNT 2.98 mill/uL (4.20-5.60); RED CELL DISTRI WIDTH 15.2 % (11.5-15.5)
[2019-03-11 20:27] LABS: ALBUMIN 3.2 g/dL (3.2-5.0); CREATININE 1.8 mg/dL (0.5-1.0); POTASSIUM 4.7 mmol/l (3.5-5.1); TOTAL PROTEIN 6.8 g/dL (6.3-8.2)
[2019-03-11 20:28] LABS: BILIRUBIN, TOTAL 1.3 mg/dL (0.0-1.4)
--- NOTE | 2019-03-11 21:45 | NUR ---
PT'S SAT ONLY [address] MOISE INFORMED INCREASED TO 4L.
--- NOTE | 2019-03-11 21:50 | NUR ---
MORALES INSERTED PER ORDER. PT TOLERATED WELL. CLOUDY URINE OUT URINE SPECIMEN SENT TO LAB.
--- NOTE | 2019-03-11 22:35 | NUR ---
PT'S SATS HOLDING AT 90-91 ON 4L. ROCEPHIN COMPLETED AND ZITROMAX INFUSING, NO ADVERSE REACTION NOTED.
--- NOTE | 2019-03-11 23:08 | NUR ---
REPORT GIVEN TO UVALDO FOR ROOM 274
--- NOTE | 2019-03-11 23:15 | NUR ---
Admission Note Report Given to: UVALDO Transported by: Wheelchair X Stretcher Transported with: X Nurse Transporter X Patent IV X O2 X Continuous Miner Operator
[2019-03-11 23:20] VITALS: BP 113/55
[2019-03-11 23:22] LABS: URINE BILIRUBIN - DIPSTICK NEGATIVE (NEGATIVE); URINE BLOOD DIPSTICK SMALL (NEGATIVE); URINE COLOR YELLOW; URINE GLUCOSE - DIPSTICK NEGATIVE (NEGATIVE); URINE KETONE NEGATIVE (NEGATIVE); URINE LEUK ESTERASE NEGATIVE (NEGATIVE); URINE NITRITE - DIPSTICK NEGATIVE (Negative); URINE PH 5.5 (4.5-8.0); URINE PROTEIN - DIPSTICK 30 mg/dL (NEG-TRACE); URINE SPECIFIC GRAVITY 1.025; URINE UROBILINOGEN - DIPSTICK 0.2 E.U./dL (0.2)
[2019-03-11 23:30] LABS: URINE AMORPH SEDIMENT MANY hpf (NONE-FEW); URINE SQUAMOUS EPITHELIAL CELL FEW EPI/hpf (0-FEW)
[2019-03-12] VITALS (7 sets, daily range): BP systolic 91–107; BP diastolic 43–57
--- NOTE | 2019-03-12 09:00 | NUR ---
PT RESTING IN BED, NO SIGNS OF DISTRESS NOTED, RESP EVEN AND UNLABORED. PT ALERT AND ORIENTED X3, JAMAICAN SPEAKING, DISTRIBUTION FIELD TECHNICIAN SPEAKS JAMAICAN. DISCUSSED POC AND ISOLATION PRECAUTIONS, DISCUSSED MEDICATIONS, PT VERBALIZED UNDERSTANDING. PT HAS A MORALES DRAINING TO GRAVITY, SUPERMARKET MANAGER COUGH, NOTED WHEEZING AND CRACKLES. PT ON 3L NC, NOT 02 DEPENDENT AT HOME. PT RECENTLY WAS SEEN BY JES FOR PARACENTESIS ON 03/10, NOTED DRESSING TO L ABD;CDI. PT ALSO SEES FOR WOUND CARE TO R ANKLE, SEE CHART FOR PHOTO, DRESSING APPLIED. ASSESSMENT COMPLETED, PT VOICES NO NEEDS OR COMPLAINTS, CALL LIGHT IN REACH,CONTINUE TO MONITOR.
--- NOTE | 2019-03-12 12:00 | NUR ---
PT ASSISTED TO CHAIR AT BEDSIDE TO EAT LUNCH, PT TOLERATING WELL. CALL LIGHT IN REACH,CONTINUE TO MONITOR.
--- NOTE | 2019-03-12 15:39 | NUR ---
PT RESTING IN BED WITH EYES CLOSED, NO SIGNS OF DISTRESS NOTED, RESP EVEN AND UNLABORED. CALL LIGHT IN REACH,CONTINUE TO MONITOR.
--- NOTE | 2019-03-12 17:44 | NUR ---
ASSISTED PT TO RECLINER FOR DINNER, CALL LIGHT IN REACH, SON AT BEDSIDE. CONTINUE TO MONITOR.
--- NOTE | 2019-03-12 22:41 | NUR ---
BP 94/39, HR 80 at 2100. Reassess BP/HR after Midodrine administration: Blood pressure 100/43, HR 58
[2019-03-13] VITALS (7 sets, daily range): BP systolic 92–117; BP diastolic 47–58
[~2019-03-13] MED LIST changes: +ANUCORT-HC25 MG RE; +KEFLEX500 M1 PO; +KEFLEX500 MG PO; +MIDODRINE10 MG PO; -MIDODRINE5 MG PO
--- NOTE | 2019-03-13 08:25 | NUR ---
PT SITTING UPRIGHT IN BED. REFUSING BREAKFAST. COOPERATIVE WITH MEDICATION. ALERT AND ORIENTED. DENIES PAIN, APPEARS UNCOMFORTABLE. DARK JACKELYN, CLOUDY URINE PER MORALES. GENERALIZED WEAKNESS NOTED. BED ALARM SET FOR SAFETY. CALL LIGHT REVIEWED AND IN REACH.
--- NOTE | 2019-03-13 09:24 | NUR ---
PT SCREAMING OUT. ASLEEP. PT. AROUSED AND CALMED. WILL CONTINUE TO MONITOR.
--- NOTE | 2019-03-13 13:18 | NUR ---
RUSSELL YU IN TO SEE PT AT THIS TIME.
[2019-03-13 13:19] LABS: HEMOGLOBIN 8.7 g/dl (12.0-16.0); IMMATURE GRANULOCYTES 0.9 % (0.0-5.0); MEAN CELL VOLUME 108.3 fL CALC (80.0-100.0); MEAN CORPUSCULAR HGB 31.4 pG CALC (26.0-32.0); NEUT# 2.37 thou/uL (2.00-7.15); RED BLOOD COUNT 2.77 mill/uL (4.20-5.60)
[2019-03-13 13:49] LABS: MAGNESIUM 2.3 mg/dL (1.6-2.3)
[2019-03-13 13:50] LABS: POTASSIUM 5.6 mmol/l (3.5-5.1)
--- NOTE | 2019-03-13 15:38 | NUR ---
DR. LACKEY IN TO SEE PT AT THIS TIME. PLAN OF CARE UPDATED.
--- NOTE | 2019-03-13 18:20 | NUR ---
PT SITTING UPRIGHT IN BED. REFUSING DINNER TRAY. ROCEPHIN IV STARTED AT THIS TIME THROUGH #20 LAC, INFUSING W/O DIFFICULTY. DENIES PAIN. O2 OFF, SAT 76%, O2 REAPPLIED, O2 NOW 93%. PT ENCOURAGED TO WEAR O2 CONTINUOUSLY.
--- NOTE | 2019-03-13 19:30 | NUR ---
REPORT RECEIVED FROM MARIO LEWIS. PT RESTING IN BED, NO S/S OF DISTRESS AT THIS TIME. SAFETY PRECAUTIONS IN PLACE. WILL CONTINUE TO MONITOR.
--- NOTE | 2019-03-13 21:55 | NUR ---
PT RESTING IN BED, O2 PULLED OFF. O2 PLACED BACK ON PT. PT DROWSY. RESPIRATIONS SHALLOW. LUNGS SOUND COARSE. PEDAL PULSES WEAK. DRESSINF TO RIGHT ANKLE CDI. PT DENIES ANY PAIN OR DISCOMFORT AT THIS TIME. PT MOVED TO A CLOSER ROOM. BED ALARM ACTIVE FOR PT SAFETY. WILL CONTINUE TO MONITOR.
[2019-03-14] VITALS (15 sets, daily range): BP systolic 99–119; BP diastolic 38–57
--- NOTE | 2019-03-14 00:02 | NUR ---
PT RESTING IN BED, RESPIRATIONS SHALLOW ON O2 @ 4L VIA NC. TELE IN PLACE. MORALES DRAINING TO GRAVITY. BED ALARM ACTIVE FOR PT SAFETY. WILL CONTINUE TO MONITOR.
--- NOTE | 2019-03-14 04:48 | NUR ---
PT RESTING IN BED. TELE IN PLACE. MORALES DRAINING TO GRAVITY. RESPIRATIONS SHALLOW ON O2 @ 4L VIA NC. BED ALARM ACTIVE FOR PT SAFETY. WILL CONTINUE TO MONITOR.
--- NOTE | 2019-03-14 08:14 | NUR ---
PT RESTING IN BED. ALERT. CHANGE OF MENTAL STATUS NOTED. PT EXHIBITING SIGNS OF HALLUCINATIONS, AND MILD AGITATION. PT DECLINED HER BREAKFAST TRAY. UNABLE TO TAKE MEDICATIONS, PT UNCOOPERATIVE AND REFUSED. MORALES DRAINING VIA GRAVITY. ITCHING TO THE SCALP NOTICED, UPON LIGHTING LICE WAS DISCOVERED.O2 VIA NC @3L. WILL CONTINUE TO MONITOR.
--- NOTE | 2019-03-14 08:44 | NUR ---
ON FLOOR, INFORMED OF PT WOUND STATUS, MD STATES PT HAS MISSED ALL HER SCHEDULED APPOINTMENTS AND WILL SEND ORDERS FOR DRESSING CHANGES.
--- NOTE | 2019-03-14 10:20 | NUR ---
PHYSICAL THERAPY AT BEDSIDE
--- NOTE | 2019-03-14 10:30 | NUR ---
PT CALLED COMMUNITY DIRECTOR TO BEDSIDE, PT WAS VERY LETHARGIC, DID NOT OPEN HER EYES, MAX ASSISTED TO SIT TO SIDE OF BED. ASSESSED PT BY COMMUNITY DIRECTOR, AND STAT BLOOD GAS ORDERED, PT WAS FOUND WITHOUT 02 NC, HEEL COVER SOFTENER AT BEDSIDE. NO SIGNS OF DISTRESS NOTED.
--- NOTE | 2019-03-14 10:40 | NUR ---
RT AT BEDSIDE TO OBTAIN STAT BLOOD GAS.
--- NOTE | 2019-03-14 11:10 | NUR ---
PT TRANSFERRED OVER TO ICU BED 3, RT AT BEDSIDE, PT PLACED ON BIPAP. REPORT GIVEN TO YAMILETH MARTIN.
--- NOTE | 2019-03-14 11:29 | NUR ---
ATTEMPTED TO CALL FAMILY, NUMBER CALLED FOR NEXT OF KIN FRANCESCA PHONE AT PT'S PHONE AT BEDSIDE RINGING, LOOKED UP NUMBER FROM PT'S PHONE AND FOUND FRANCESCA. CALLED THE NUMBER [phone], NO ANSWER, MESSAGE LEFT.
--- NOTE | 2019-03-14 11:42 | NUR ---
O.T. RECEIVED ORDERS TO EVALUATE PATIENT IN ROOM 271 AND NURSE REPORTED PATIENT TRANSFERRED TO ICU. IN ICU PATIENT WAS IN PROCESS OF BEING ADMITTED. WILL ATTEMPT TO EVALUATE LATER TODAY.
--- NOTE | 2019-03-14 12:30 | NUR ---
PT REMAINS ON BIPAP, RID LICE STEP 1 APPLIED TO DAMP HAIR PER SAMMY YU. GROSS AMOUNT OF NITS AND LICE NOTED ON PT SCALP. SCALP MASSAGED. ATTEMPTED TO COMB HAIR PT BECAME AGITATED. WILL MONITOR AND TRAY AGAIN.
--- NOTE | 2019-03-14 13:00 | NUR ---
DAUGHTER ARRIVED AT BEDSIDE.
--- NOTE | 2019-03-14 13:16 | NUR ---
DAUGHTER LEFT BEDSIDE, ASKED TO SPEAK WITH THE MD. NOTIFIED SAMMY YU. SAMMY YU WILL SPEAK TO THEM SILVIA TO WAIT IN WAITING ROOM. PT DAUGHTER STATED SHE COULD NOT WAIT AND TO HAVE THEM CALL HER, FRANCESCA AT [phone].
[2019-03-14 13:46] LABS: HEMATOCRIT 31.6 % (37.0-47.0); HEMOGLOBIN 9.2 g/dl (12.0-16.0); MEAN CELL VOLUME 107.1 fL CALC (80.0-100.0); MEAN CORPUSCULAR HGB 31.2 pG CALC (26.0-32.0); MEAN CORPUSCULAR HGB CONC 29.1 g/L CALC (32.0-36.0); RED BLOOD COUNT 2.95 mill/uL (4.20-5.60)
[2019-03-14 14:03] LABS: MAGNESIUM 2.2 mg/dL (1.6-2.3)
[2019-03-14 14:06] LABS: POTASSIUM 5.5 mmol/l (3.5-5.1)
--- NOTE | 2019-03-14 14:26 | NUR ---
PT NOTED PULLING AT EQUIPMENT, JONAH BOYER TRANSLATED TO PT FOR REDIRECTION. MORALES REMAINS PATENT, DRAINING TO BSD VIA GRAVITY. CALL LIGHT IN REACH. WILL MONITOR.
--- NOTE | 2019-03-14 17:32 | NUR ---
PT RESTING IN BED. BIPAP IN PLACE, MORALES REMAINS PATENT, DRAINING TO BSD VIA GRAIVITY. CALL LIGHT IN REACH. WILL MONITOR.
--- NOTE | 2019-03-14 19:25 | NUR ---
PATIENT LAYS WITH HOB ABOUT 30 DEGREES, ON BIPAP, FIO2 35%. NO LABORED BREAHTING NOTED. PATIENT RESTS WITH EYES CLOSED, AWAKENS WITH VERBAL STIMULI. PATIENT ONLY FOLLOWS SOME COMMANDS, SUCH , LIFT YOUR HEAD UP, OPEN YOUR EYES. WHEN ASKED HER NAME, , HER AGE, PLACE, AND TIME, SHE DOES NOT ANSWER ONLY, "HMMM." PATIENT DOES MOVE HER EXTREMITIES. AFEBRILE. AFIB WITH HEART RATE RANGING FROM 40'S-50'S. SATS 99%. LAC 20 G IV INTACT, HAS ANTIBIOTICS INFUSING AT MOMENT AND D5 1/2 NS INFUSES AT 35 ML/HR. HEAD TO TOE NURSING ASSESSMENT PERFORMED, SEE CHARTING DOCUMENTATION. MORALES CATHETER INTACT, DRAINS YELLOW/CLEAR URINE. L-WRIST RESTRAINT INTACT. EDUCATED SENIOR PROJECT ACCOUNTANT LIGHT AND WITHIN REACH.
--- NOTE | 2019-03-14 19:50 | NUR ---
CALLED AND SPOKE TO DR DARYA VIERA MEDICATION ORDERS TO FIX PATIENT'S ELEVATED POTASSIUM, NEW ORDERS RECEIVED.
--- NOTE | 2019-03-14 20:00 | NUR ---
CALLED AND SPOKE TO ADONAY IN [facility] TO ASK ABOUT RATE FOR CALCIUM CHLORIDE IN 100 ML OF DEXTROSE 5%, RATE TO BE 100ML/HR. ORDER CLARIFIED.
--- NOTE | 2019-03-14 20:19 | NUR ---
DAUGHTER ACCOMPANIED BY MALE VISITOR CAME TO NURSE'S STATION TO ASK FOR UPDATE REGARDING PATIENT. UPDATE GIVEN. DAUGHTER NOW AT BEDSIDE. MALE HAS STEPPED OUT. DAUGHTER EDUCATED ABOUT ISOLATION PRECAUTIONS.
--- NOTE | 2019-03-14 21:50 | NUR ---
PATIENT TAKEN OFF OF BIPAP FROM [id number] PLACED ON 4L/MIN NC AND SATTED 98%. PATIENT TOLERATED WELL. NO SOB NOTED. PATIENT DROWSY BUT ABLE TO AWAKE WITH VERBAL STIMULI. PATIENT WAS GIVEN ORANGE JUICE AND APPLE SAUCE WITH MEDICATIONS, PATIENT ABLE TO TOLERATE WITH VERBAL CUEING AND ENCOURAGEMENT, NO COUGHING NOTED. HOB ELEVATED AT ALL TIMES. CALL LIGHT WITHIN REACH.
[2019-03-15] VITALS (19 sets, daily range): BP systolic 90–119; BP diastolic 38–51
--- NOTE | 2019-03-15 00:21 | NUR ---
PATIENT'S RIGHT MEDIAL DON ULCER DRESSING HAS BEEN CHANGED ACCORDING TO DR ORDERS IN CHART, PATIENT WAS UNCOOPERATIVE AT TIMES BY MOVING LEG AROUND. PICTURES TAKEN OFF ULCER AND BUTTOCKS. PATIENT REPOSITIONED, PULLED UP. SHE IS NOW AWAK AND YELLS ALOUD THROUGH THE BIPAP MASK. LEFT WRIST RESTRAINT LOOSENED FOR REPOSITIONING. AFEBRILE. HEELS ELEVATED. CALL LIGHT WITHIN REACH.
--- NOTE | 2019-03-15 02:00 | NUR ---
ATTEMPTED TO PLACE ANOTHER IV ON PATIENT, UNSUCCESSFUL. PATIENT LAC 20 G IV IS INTACT. ALSO GAVE PATIENT SOME OJ WITH SUGAR FOR LOW BLOOD SUGAR, PATIENT TLERATED DRINK, NO COUGHIN NOTED, NEEDS VERBAL CUEING EACH TIME. CALL LIGHT WITHIN REACH.
--- NOTE | 2019-03-15 04:15 | NUR ---
PATIENT RESTS WITH EYES CLOSED. ON BIPAP. NO ACUTE DISTRESS SHOWN. AFEBRILE. CALL LIGHT WITHIN REACH.
--- NOTE | 2019-03-15 04:39 | NUR ---
PATIENT'S LOWER DENTURE TAKEN OFF AND PLACED IN DENTURE CUP WITH NAME.
[2019-03-15 05:20] LABS: HEMATOCRIT 31.8 % (37.0-47.0); HEMOGLOBIN 9.2 g/dl (12.0-16.0); IMMATURE GRANULOCYTES 0.6 % (0.0-5.0); MEAN CELL VOLUME 107.4 fL CALC (80.0-100.0); MEAN CORPUSCULAR HGB 31.1 pG CALC (26.0-32.0); MEAN CORPUSCULAR HGB CONC 28.9 g/L CALC (32.0-36.0); NEUT# 2.64 thou/uL (2.00-7.15); RED BLOOD COUNT 2.96 mill/uL (4.20-5.60)
[2019-03-15 05:42] LABS: CREATININE 2.1 mg/dL (0.5-1.0)
[2019-03-15 05:47] LABS: POTASSIUM 5.2 mmol/l (3.5-5.1)
--- NOTE | 2019-03-15 06:02 | NUR ---
XRAY TAKEN, PATIENT PULLED UP REPOSITIONED, HEELS ELEVATED, PT YELLS WHEN BEING MOVED. PATIENT DROWSY, DOES NOT FOLLOW DIRECTIONS. CALL LIGHT WITHIN REACH.
--- NOTE | 2019-03-15 06:50 | NUR ---
REPORT RECVD FROM MARIO RIZO AT START OF SHIFT.
--- NOTE | 2019-03-15 07:52 | NUR ---
PT CALM AT THIS TIME, TV ON TO [employer] CHANNEL NEXT TO HEAD. BED ALARM SET. CURTAINS OPEN BUT DOOR CLOSED WITH PRECAUTIONS BAG ON WALL.
--- NOTE | 2019-03-15 08:21 | NUR ---
BIPAP ALARMING, UPON ENTERING ROOM, NOTICED PT HAD REMOVED BIPAP. BIPAP REPLACED. CALLBELL ON PTS CHEST.
--- NOTE | 2019-03-15 09:30 | NUR ---
SAMMY YU, @BEDSIDE ASSESSING PT.
--- NOTE | 2019-03-15 10:06 | NUR ---
SAMMY NOTIFIED OF PTS MEDS BEING PO WHEN PT IS NPO. SHE DOES NOT HAVE ACCESS TO EMAR AT THIS TIME, WILL TRY AGAIN LATER TO CHANGE MEDS TO IV.
--- NOTE | 2019-03-15 12:27 | NUR ---
"SON" @BEDSIDE TO VISIT PT; ADVISED TO KEEP BABY OUT OF ICU D/T PRECAUTIONS.
--- NOTE | 2019-03-15 14:09 | NUR ---
FEMALE @BEDSIDE VERY ANGRY/SASSY TOWARDS STAFF. JUST ARRIVED.
--- NOTE | 2019-03-15 14:30 | NUR ---
DR LACKEY & GIGI CHRISTIANSON @BEDSIDE ASSESSING PT & DISCUSSING POC.
--- NOTE | 2019-03-15 14:35 | NUR ---
MD REMOVED BIPAP, PLACED PT ON 3L NC; SATS 97%. ORDERED 2L NC; O2 SATS 96%
--- NOTE | 2019-03-15 14:35 | NUR ---
NOTIFIED HOUSE SUP OF MD REQUEST CENTRAL LINE.
--- NOTE | 2019-03-15 15:07 | NUR ---
BIPAP STANDBY. PT ON 2L NC
[2019-03-15 15:13] LABS: INTERNATIONAL NORMALIZED RATIO 1.1 RATIO (0.7-1.3); PROTHROMBIN TIME 11.6 SECONDS (9.0-12.5)
--- NOTE | 2019-03-15 17:22 | NUR ---
PT SLEEPING IN BED, ON BACK. CALLBELL ON CHEST. NO S/S OF DISTRESS. WILL CONTINUE TO MONITOR.
--- NOTE | 2019-03-15 17:38 | NUR ---
ENTERED ROOM BC PT WAS YELLING- PT SLEEPING, EYES CLOSED. DINNER TRAY LEFT AT BEDSIDE FOR WHEN PT AWAKENS. PO MEDS PENDING PT WAKING UP. IV ABX PENDING CENTRAL LINE.
--- NOTE | 2019-03-15 18:29 | NUR ---
WOKE PT UP, SET UP DINNER TRAY, FEED PT JELLO.
--- NOTE | 2019-03-15 18:40 | NUR ---
PT SCREAMING ABOUT "AGUA". PT THINKS THERE IS WATER ALL AROUND HER. PT IS DRY; REORIENTED.
--- NOTE | 2019-03-15 18:50 | NUR ---
REPORT FROM Isma LOPEZ RN. ASSUMED PT. CARE.
--- NOTE | 2019-03-15 19:20 | NUR ---
DR. HILL AT BEDSIDE FOR CENTRAL LINE PLACEMENT. PT. CONTINUES TO YELL OUT AT THIS TIME. REMAINS STABLE ON THE MONITOR WITH 2L NC IN PLACE AND SPO2 OF 97%. ORIENTED X 0. CONFUSED. LUNGS COARSE THROUGHOUT. DISTIL PULSES INTACT. RESPSP LUKE SANDHU, UNLABORED AT THIS TIME. BOWEL SOUNDS ACTIVE. BP/HR STABLE. IV FLUIDS WILL INFUSE AFTER CENTRAL LINE PLACEMENT AND VERIFICATION. CALL LIGHT REMAINS WITHIN REACH. WILL CONTINUE TO CLOSLEY MONITOR.
--- NOTE | 2019-03-15 20:02 | NUR ---
PER DR. HILL, RADIOLGY AT BEDSIDE TO PERFORM CENTRAL LINE PLACEMENT CHEST X-RAY. PER DR. HILL, OK TO UTILIZE CENTRAL LINE.
--- NOTE | 2019-03-15 21:40 | NUR ---
PT. RESTING COMFORTABLY IN BED IN NO DISTRESS. REPS REMAIN EVEN, SHALLOW UNLBAORED. SPOW REMAISN AT 97%ON 2L VIA NC. KEEPING NASAL CANNULA IN PLACE AT THIS TIME. CALL LIGHT REMAINS WITHIN REACH. WILL CONTINUE TO CLOSELY MONITOR.
--- NOTE | 2019-03-15 23:30 | NUR ---
PT. MEDICATED PER PHYSICIAN ORDERS. NO REACTIONS NOTED TO INFUSING ZOSYN AT THIS TIME. RESPS REMAIN EVEN, SHALLOW, SLIGHLTLY LABORED, BUT NO ACUTE DISTRESS NOTED.
[2019-03-16] VITALS (16 sets, daily range): BP systolic 98–121; BP diastolic 44–68
--- NOTE | 2019-03-16 00:30 | NUR ---
COMPLETE BED BATH GIVEN AND ALL LINENS CHANGED. PT. REMAINS WITH PATENT MORALES CATHETER. DRESSING TO RT. LOWER EXT CHANGED AT THIS TIME AND SANTYL APPLIED. CALL LIGHT REMAINS WITHIN REACH. WILL CONTINUE TO CLOSELY MONITOR.
--- NOTE | 2019-03-16 02:23 | NUR ---
PT. REMAINS RESTFUL WITH SHALLOW UNLABORED RESPS. BP/HR REMAINS STABLE. IV FLUIDS CONTINUE TO INFUSE ORDERED. REMAINS DROWSY. WILL CONTINUE TO REPOSITION NEEDED. CALL LIGHT REMAINS WITHIN REACH.
--- NOTE | 2019-03-16 03:05 | NUR ---
PT. STARTING TO YELL OUT AND IS NOT MAKING SENSE. ORIENTED X 0. LEGS KICKING ABOUT THE BED AT THIS TIME. REORIENTED TO SITUATION. WILL CONTINUE TO MONITOR.
--- NOTE | 2019-03-16 03:58 | NUR ---
PT. REPOSITIONED FOR COMFORT AT THIS TIME. MORE RESTLESS AND ANXIOUS. CALLING OUT, BUT DOES NOT MAKE SENSE. RESPS REMAIN EVEN AND SHALLOW. CONTINUES IN A-FIB, RATE CONTROLLED. SKIN REMAINS WARM AND DRY. IV FLUIDS CONTINUE TO INFUSE. WILL CONTINUE TO CLOSELY MONITOR.
--- NOTE | 2019-03-16 05:36 | NUR ---
PT. LESS ANXIOUS AT THIS TIME. RESTING WITH LESS AGGITATION. REMAINS A-FIB WITH RATE NOW IN THE LOW 100'S. BP STABLE. SPO2 94% ON 4L NC. ZOSYN INFUSING WITHOUT SIGNS OF REACTIONS. WILL CONTINUE TO MONITOR.
[2019-03-16 06:20] LABS: ALBUMIN 2.8 g/dL (3.2-5.0); BILIRUBIN, TOTAL 0.9 mg/dL (0.0-1.4); POTASSIUM 4.5 mmol/l (3.5-5.1); TOTAL PROTEIN 6.4 g/dL (6.3-8.2)
[2019-03-16 06:22] LABS: HEMATOCRIT 34.9 % (37.0-47.0); HEMOGLOBIN 10.2 g/dl (12.0-16.0); IMMATURE GRANULOCYTES 0.7 % (0.0-5.0); MEAN CELL VOLUME 105.4 fL CALC (80.0-100.0); MEAN CORPUSCULAR HGB 30.8 pG CALC (26.0-32.0); MEAN CORPUSCULAR HGB CONC 29.2 g/L CALC (32.0-36.0); NEUT# 1.86 thou/uL (2.00-7.15); RED BLOOD COUNT 3.31 mill/uL (4.20-5.60); RED CELL DISTRI WIDTH 15.7 % (11.5-15.5)
--- NOTE | 2019-03-16 06:45 | NUR ---
RECIEVED REPROT FROM MARIO MUIR. ASSUMED PT CARE.
--- NOTE | 2019-03-16 08:30 | NUR ---
DR. YU AT BEDSIDE FOR ASSESSMENT AND TO DISCUSS PLAN OF CARE. RT NOTIFIED FOR ABG.
--- NOTE | 2019-03-16 08:45 | NUR ---
PT NOTED WITH UPPER BODY/RESPIRATIONS IN PULSATING RYTHMN, JVD NOTED, DR. YU NOTIFIED, NEW ORDERS RECIEVED. PT REMAINS NON-VERBAL.
--- NOTE | 2019-03-16 09:00 | NUR ---
RT NOTIFIED FOR INTUBATION, RT IN ER AT BEDSIDE. NOTIFIED DIRECTOR OF NURSES REGISTRY KEISHA AT BEDSIDE FOR INTUBATION SEE THERE NOTES.
--- NOTE | 2019-03-16 09:15 | NUR ---
VARGHESE MARTINEZ, RT AND HEIDI BAGLEY AT BEDSIDE. INTUBATION DONE WITHOUT DIFFICULTY. PT TOLERATED WELL, ETT 7.5, 22 AT LIPLINE. FOI2@30%. MORALES REMAINS PATENT DRAINNIG TO BEDSIDE DRAINING. WILL MONITOR.
--- NOTE | 2019-03-16 09:35 | NUR ---
Call place to [facility] center, spoke with Tena, gave pt information;
--- NOTE | 2019-03-16 10:15 | NUR ---
Call received from Oksana at [facility]; accepting MD. Dr. Viral Yepez; Oksana states awaiting facesheet, faxed to [phone], with return confirmation.
--- NOTE | 2019-03-16 10:20 | NUR ---
Call place to daughter, Lanette [phone], gave update on pt status and tx order to [facility]. Daughter states she will be in about 15-20 minutes
--- NOTE | 2019-03-16 10:50 | NUR ---
PONCE FROM [facility], ROOM ASSIGNEMENT 5D02A; [phone] NUMBER FOR REPORT; [facility] CALLED GAVE PT INFORMATION; 1.5 HOURS FOR TRANSPORT; DAUGHTER FRANCESCA IN TO SEE PT; NOTIFIED OF ROOM NUMBER AND TRANSPORT TIME, UPDATED ON PT STATUS
--- NOTE | 2019-03-16 11:15 | NUR ---
DAUGHTER AND FAMILY ARRIVED AT BEDSIDE. WILL MONITOR
--- NOTE | 2019-03-16 11:46 | NUR ---
NOTIFIED DR. YU OF LAB , NEW ORDERS RECIEVED TO INSERT NG TUBE AND GIVE 30ML OF LACTULOSE.
--- NOTE | 2019-03-16 12:00 | NUR ---
16FR NG TUBE PLACED TO L NARE. PLACEMENT VERIFIED VIA AUSCULTATION, INTERMITTENT SUCTION WITH GREEN DRAINAGE NOTED. PT TOLERATED WELL. WILL MONITOR.
--- NOTE | 2019-03-16 13:20 | NUR ---
PT LEFT VIA [facility], DAUGHTER AND SON AT BEDSIDE.ALL BELONGINGS SENT WITH PT DAUGHTER FRANCESCA.
--- NOTE | 2019-03-16 13:50 | NUR ---
REPORT CALLED TO MARIO CHOE AT [facility] ICU [phone].
== END 2019-03-16 13:20 | disposition short-term general hospital (02) | DRG 208 ==
PROVIDERS: Family Medicine; Nurse Practitioner Family; ADMIT Internal Medicine
PROC: 0T9B70Z Drainage of Bladder with Drainage Device, Via Natural or Artificial Opening (ICD-10-PCS; principal; 2019-03-11)
PROC: 5A09457 Assistance with Respiratory Ventilation, 24-96 Consecutive Hours, Continuous Positive Airway Pressure (ICD-10-PCS; 2019-03-14)
PROC: 05HY33Z Insertion of Infusion Device into Upper Vein, Percutaneous Approach (ICD-10-PCS; 2019-03-15)
PROC: 5A1935Z Respiratory Ventilation, Less than 24 Consecutive Hours (ICD-10-PCS; 2019-03-16)
PROC: 0BH17EZ Insertion of Endotracheal Airway into Trachea, Via Natural or Artificial Opening (ICD-10-PCS; 2019-03-16)
DX: J10.00 Influenza due to other identified influenza virus with unspecified type of pneumonia (principal); J96.22 Acute and chronic respiratory failure with hypercapnia; J96.21 Acute and chronic respiratory failure with hypoxia; I13.0 Hypertensive heart and chronic kidney disease with heart failure and stage 1 through stage 4 chronic kidney disease, or unspecified chronic kidney disease; R18.8 Other ascites; G93.40 Encephalopathy, unspecified; E87.2 Acidosis; E11.9 Type 2 diabetes mellitus without complications; E03.9 Hypothyroidism, unspecified; I50.9 Heart failure, unspecified; E11.22 Type 2 diabetes mellitus with diabetic chronic kidney disease; N18.3 Chronic kidney disease, stage 3 (moderate); D63.1 Anemia in chronic kidney disease; K74.60 Unspecified cirrhosis of liver; E87.5 Hyperkalemia
CPT/HCPCS: G0378; G9019; J2060